=== PATIENT | male | born 1945 | race African-American/Black ===

== ENCOUNTER 2019-04-04 05:24 | Inpatient (IN) | payer MEDICARE, OTHER ==
[2019-04-01 12:07] LABS: BASOPHILS # (AUTO) 0.1 (0.0-0.1); BASOPHILS % 0.7 % (0.0-1.0); EOSINOPHILS # (AUTO) 0.2 (0.0-0.4); EOSINOPHILS % 2.5 % (0.0-6.0); HEMATOCRIT 46.9 % (38.2-49.6); HEMOGLOBIN 15.4 g/dL (14.0-18.0); LYMPHOCYTES # (AUTO) 1.4 (1.0-3.2); LYMPHOCYTES % 20.2 % (18.0-39.1); MEAN CORPUSCULAR HEMOGLOBIN 28.8 pg (28-32); MEAN CORPUSCULAR HGB CONC 32.8 g/dL (31-35); MEAN CORPUSCULAR VOLUME 87.8 fL (81-99); MONOCYTES # (AUTO) 0.6 (0.2-0.8); MONOCYTES % 9.1 % (4.4-11.3); NEUTROPHILS # (AUTO) 4.5 (2.1-6.9); NEUTROPHILS % 66.9 % (38.7-80.0); PLATELET COUNT 251 x10e3/uL (140-360); RED BLOOD COUNT 5.34 x10e6/uL (4.3-5.7); RED CELL DISTRIBUTION WIDTH 14.7 % (11.7-14.4)
[2019-04-01 12:32] LABS: ANION GAP 13.2 mmol/L (8-16); BLOOD UREA NITROGEN 15 mg/dL (7-26); BUN/CREATININE RATIO 13 (6-25); CALCIUM 10.7 mg/dL (8.4-10.2); CARBON DIOXIDE 24 mmol/L (22-29); CHLORIDE 103 mmol/L (98-107); CREATININE, SERUM 1.18 mg/dL (0.72-1.25); EST GLOMERULAR FILTRATION RATE > 60 ML/MIN (60-); GLUCOSE 94 mg/dL (74-118); POTASSIUM 4.2 mmol/L (3.5-5.1); SODIUM 136 mmol/L (136-145)
[~2019-04-04] VITALS: Ht 175.3 cm; Wt 114.8 kg
[~2019-04-04 05:24] MED LIST: AMLODIPINE BESYL5 MG PO; GABAPENTIN300 MG PO; IBUPROFEN400 MG PO; LEVITRA20 MG PO; TRIAMTERENE-HCTZ1 EA PO; VITAMIN B-121000 MCG PO; VITAMIN D1000 UNI1 PO
--- OUTSIDE RECORDS SUMMARY | 2019-04-04 05:31 | XMS REPORT | Summary of Care ---
Author Author [facility] Organization [facility] Address Unknown Phone Unavailable Encounter DANNY Anguiano(ALLEN) [id number] Date(s): 04/18/17 - 04/18/17 [facility] [address], [place], [place] [address]- [phone] Discharge Diagnosis: Lumbar strain Discharge Disposition: Home or Self Care Attending Physician: Iglesia Irby MD Vital Signs Most recent to 1 oldest [Reference Range]: Height 175.26 cm (04/18/17 8:11 AM) Temperature Oral 97.8 DegF [96.4-99.1 DegF] (04/18/17 8:11 AM) Blood Pressure 133/85 mmHg [90-140/60-90 mmHg] (04/18/17 8:11 AM) Respiratory Rate 16 BRMIN [14-20 BRMIN] (04/18/17 8:11 AM) Peripheral Pulse 77 bpm Rate [60-100 bpm] (04/18/17 8:11 AM) Weight 104.545 kg (04/18/17 8:11 AM) Body Mass Index 34.04 m2 (04/18/17 8:11 AM) Problem List Condition Effective Dates Status Health Status Informant HTN Active (hypertension)(Confi rmed) Allergies, Adverse Reactions, Alerts Substance Reaction Severity Status NKDA Active Medications No data available for this section Results URINE AND STOOL Most recent to 1 oldest [Reference Range]: UA Turbidity [Clear] Clear (04/18/17 8:43 AM) UA Color [Yellow] Yellow *NA* (04/18/17 8:43 AM) UA pH [5.0-8.0] 5.5 (04/18/17 8:43 AM) UA Spec Grav 1.025 [<=1.030] (04/18/17 8:43 AM) UA Glucose Negative [Negative] (04/18/17 8:43 AM) UA Blood [Negative] Negative (04/18/17 8:43 AM) UA Ketones Negative [Negative] *NA* (04/18/17 8:43 AM) UA Protein Negative [Negative] (04/18/17 8:43 AM) UA Urobilinogen 0.2 EU/dL [0.1-1.0 EU/dL] (04/18/17 8:43 AM) UA Bili [Negative] Large *ABN* (04/18/17 8:43 AM) UA Leuk Est Negative [Negative] (04/18/17 8:43 AM) UA Nitrite Negative [Negative] (04/18/17 8:43 AM) UA WBC [None Seen] None Seen (04/18/17 8:43 AM) UA RBC [0-2 /HPF] 0-2 /HPF (04/18/17 8:43 AM) UA Bacteria [None None Seen Seen] (04/18/17 8:43 AM) UA Sq Epi [Few] None Seen (04/18/17 8:43 AM) Immunizations No data available for this section Procedures Procedure Date Related Diagnosis Body Site Carpal tunnel release Cholecystectomy ORIF - Open reduction and internal fixation of fracture1 1x2 Social History Social History Type Response Smoking Status Never smoker; Exposure to Tobacco Smoke None; Cigarette Smoking Last 365 Days No; Reg Smoking Cessation Counseling No Assessment and Plan No data available for this section
--- OUTSIDE RECORDS SUMMARY | 2019-04-04 05:31 | XMS REPORT | Continuity of Care Document ---
Author Author [facility] Organization [facility] Address Unknown Phone Unavailable Care Team Providers Care Hvac Designer Name Role Phone [facility] Unavailable Unavailable Problems Problem Status Onset Date Classification Date Reported Comments Source Discharge Diagnosis: Lumbar strain 04/18/2017 04/21/2017 [facility] LOWER BACK PAIN Active 04/18/2017 [facility] Discharge Diagnosis: Cervical spinal stenosis 11/09/2015 11/12/2015 [facility] NECK PAIN Active 11/09/2015 [facility] HTN (Confirmed) Active Problem 04/21/2017 [facility] Medications Medication Details Route Status Patient Instructions Ordering Provider Order Date Source Acetaminophen 325 MG / Hydrocodone Bitartrate 5 MG Oral Tablet [[place] 5/325] 2 tab, Route: PO, Drug Form: TAB, kg, ONCE, STAT, Start date: 11/09/15 0:28:00 CDT, Stop date: 11/09/15 0:28:00 CDTNotes: (Same as: [place] 325/5) Do not exceed 4gm/day of acetaminophen. Inactive 11/09/2015 [facility] Allergies, Adverse Reactions, Alerts No Known Medication Allergies Immunizations No Data Provided for This Section Results Order Name Results Value Reference Range Date Interpretation Comments Source URINE AND STOOL UA WBC None Seen (04/18/17 8:43 AM) None Seen 04/18/2017 [facility] URINE AND STOOL UA Sq Epi None Seen (04/18/17 8:43 AM) Few 04/18/2017 [facility] URINE AND STOOL UA Bacteria None Seen (04/18/17 8:43 AM) None Seen 04/18/2017 [facility] URINE AND STOOL UA Glucose Negative (04/18/17 8:43 AM) Negative 04/18/2017 [facility] URINE AND STOOL UA Urobilinogen 0.2 0.1 - 1.0 04/18/2017 [facility] URINE AND STOOL UA Blood Negative (04/18/17 8:43 AM) Negative 04/18/2017 [facility] URINE AND STOOL UA Bili Large *ABN* (04/18/17 8:43 AM) Negative 04/18/2017 [facility] URINE AND STOOL UA Leuk Est Negative (04/18/17 8:43 AM) Negative 04/18/2017 [facility] URINE AND STOOL UA Nitrite Negative (04/18/17 8:43 AM) Negative 04/18/2017 [facility] URINE AND STOOL UA RBC 0-2 /HPF 0 - 2 04/18/2017 [facility] URINE AND STOOL UA Ketones Negative *NA* (04/18/17 8:43 AM) Negative 04/18/2017 [facility] URINE AND STOOL UA Turbidity Clear (04/18/17 8:43 AM) Clear 04/18/2017 [facility] URINE AND STOOL UA Color Yellow *NA* (04/18/17 8:43 AM) Yellow 04/18/2017 [facility] URINE AND STOOL UA Protein Negative (04/18/17 8:43 AM) Negative 04/18/2017 [facility] URINE AND STOOL UA pH 5.5 5.0 - 8.0 04/18/2017 [facility] URINE AND STOOL UA Spec Grav 1.025 <=1.030 04/18/2017 [facility] Pathology Reports No Data Provided for This Section Diagnostic Reports Report Value Date Source Spine lumbar 2 or 3 views DX EXAM: AP and lateral radiographs of the lumbar spine, 4 images obtained INDICATION: Right-sided lumbar back pain COMPARISON: None FINDINGS: Only 4 nonrib-bearing lumbar-type vertebral bodies are identified. The vertebral bodies are normal in height and alignment. Anterolisthesis is present at the 3, L4, and S1 vertebral bodies. There is mild disc space height loss at L4-S1. Moderate: Left hip osteoarthritis is present. Right total hip arthroplasty is present. Sacroiliac joints are fairly well-maintained. IMPRESSION: Of note, only 4 nonrib-bearing lumbar-type vertebral bodies are identified. No acute osseous findings. Mild to moderate degenerative changes are present at L4-S1. SL: [id number] 04/18/2017 [facility] Spine cervical wo contrast CT Clinical Indication: Pain, Cervical region; right posterior neck pain 4 days denies trauma Comparison: None Technique: Multi-detector CT imaging of the cervical spine is performed. Coronal and sagittal reconstructions were obtained. CT Radiation Dose DLP 546 mGy-cm FINDINGS: ALIGNMENT AND GENERAL ASSESSMENT: There is straightening of the cervical spine curvature from positioning or muscle spasm. There are no fractures or subluxations. The craniocervical junction in the atlanto-dental alignment appears maintained. The posterior elements and spinous processes as well as the facet joint spinolaminar and spinous process alignment are maintained. 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 DISK SPACES AND SOFT TISSUES: The prevertebral soft tissues are normal. 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 C2-C3 no significant disc bulge. Right facet arthropathy. No foraminal stenosis. Mild canal stenosis. C3-C4 there is some disc space narrowing. No significant disc bulge. Facets unremarkable. No foraminal stenosis. Mild canal stenosis. C4-C5 there is disc space narrowing with mild diffuse disc bulge. Facets unremarkable. Mild central canal stenosis. No significant foraminal stenosis. C5-C6 loss of disc spacing with some diffuse disc bulging with mild canal stenosis. No foraminal stenosis. Facets unremarkable. C6-C7 possible disc spacing mild diffuse disc bulging with mild to moderate canal stenosis. No foraminal stenosis. MRI is the gold standard to assess for disk disease. VISUALIZED LUNG APICES: Unremarkable. CT myelogram or MRI of the cervical spine may be performed, if there is further concern. IMPRESSION: 1. No fractures or subluxations of the cervical spine. 2. Degenerative changes noted superimposed upon likely component of congenital canal stenosis SL: [id number] 11/09/2015 [facility] Consultation Notes No Data Provided for This Section Discharge Summaries No Data Provided for This Section History and Physicals No Data Provided for This Section Vital Signs Vital Sign Value Date Comments Source Weight 104.545 04/18/2017 [facility] Height 175.26 cm 04/18/2017 [facility] BMI Calculated 34.04 04/18/2017 [facility] Temperature Oral (F) 97.8 F 04/18/2017 [facility] Respitory Rate 16 04/18/2017 [facility] Heart Rate 77 04/18/2017 [facility] Systolic (mm Hg) 133 04/18/2017 [facility] Diastolic (mm Hg) 85 04/18/2017 [facility] Heart Rate 80 11/09/2015 [facility] Respitory Rate 18 11/09/2015 [facility] Systolic (mm Hg) 120 11/09/2015 [facility] Diastolic (mm Hg) 85 11/09/2015 [facility] Height 175.26 cm 11/09/2015 [facility] Weight 104.545 11/09/2015 [facility] BMI Calculated 34.04 11/09/2015 [facility] Systolic (mm Hg) 158 11/09/2015 [facility] Diastolic (mm Hg) 80 11/09/2015 [facility] Heart Rate 70 11/09/2015 [facility] Temperature Oral (F) 98.1 F 11/09/2015 [facility] Respitory Rate 18 11/09/2015 [facility] Encounters Location Location Details Encounter Type Encounter Number Reason For Visit Attending Provider ADM Date DC Date Status Source [place] [facility] [id number] Jordan Carrollden 11/09/2015 11/09/2015 [facility] [id number] Iglesia Irby 04/18/2017 04/18/2017 [facility] Procedures Procedure Code Date Perfomer Comments Source Carpal tunnel release 08805836 [facility] Cholecystectomy [id number] [facility] ORIF - Open reduction and internal fixation of fracture<sup>1</sup> 54272988 x2 [facility] Assessment and Plan No Data Provided for This Section Plan of Care No Data Provided for This Section Social History Social History Date Source Social History TypeResponse Smoking Status Never smoker; Exposure to Tobacco Smoke None; Cigarette Smoking Last 365 Days No; Reg Smoking Cessation Counseling No 04/18/2017 [facility] Family History No Data Provided for This Section Advance Directives No Data Provided for This Section Functional Status No Data Provided for This Section
--- OUTSIDE RECORDS SUMMARY | 2019-04-04 05:31 | XMS REPORT | Summary of Care ---
Author Author [facility] Organization [facility] Address Unknown Phone Unavailable Encounter DANNY Anguiano(ALLEN) [id number] Date(s): 11/09/15 - 11/09/15 [facility] [address], [place], [place] [address]- [phone] Discharge Diagnosis: Cervical spinal stenosis Discharge Disposition: Home Attending Physician: Jordan Thrasher MD Vital Signs Most recent to 1 2 oldest [Reference Range]: Height 175.26 cm (11/09/15 12:26 AM) Temperature Oral 98.1 DegF [96.4-99.1 DegF] (11/09/15 12:26 AM) Blood Pressure 120/85 mmHg 158/80 mmHg [90-140/60-90 mmHg] (11/09/15 3:13 AM) *HI* (11/09/15 12:26 AM) Respiratory Rate 18 BRMIN 18 BRMIN [14-20 BRMIN] (11/09/15 3:13 AM) (11/09/15 12:26 AM) Peripheral Pulse 80 bpm 70 bpm Rate [60-100 bpm] (11/09/15 3:13 AM) (11/09/15 12:26 AM) Weight 104.545 kg (11/09/15 12:26 AM) Body Mass Index 34.04 m2 (11/09/15 12:26 AM) Problem List Condition Effective Dates Status Health Status Informant HTN Active (hypertension)(Confi rmed) Allergies, Adverse Reactions, Alerts Substance Reaction Severity Status NKDA Active Medications [place] 5/325 oral tablet 2 tab, Route: PO, Drug Form: TAB, kg, ONCE, STAT, Start date: 11/09/15 0:28:00 C DT, Stop date: 11/09/15 0:28:00 CDT Notes: (Same as: [place] 325/5) Do not exceed 4gm/day of acetaminophen. Start Date: 11/09/15 Stop Date: 11/09/15 Status: Completed Results No data available for this section Immunizations No data available for this section [...]
--- OUTSIDE RECORDS SUMMARY | 2019-04-04 05:31 | XMS REPORT ---
Author Author [facility] Address Unknown Phone Unavailable Care Team Providers Care Dust Box Worker Name Role Phone Unavailable Unavailable Payers Payer Name Policy Type Policy Number Effective Date Expiration Date Problems This patient has no known problems. Allergies, Adverse Reactions, Alerts Allergy Name Allergy Type Status Severity Reaction(s) Onset Date Inactive Date Treating Clinician Comments No Known Allergies DA Active U 2016-01-11 00:00:00 Medications This patient has no known medications. Results Test Description Test Time Test Comments Text Results Atomic Results Result Comments - XR CHEST 2 V 2019-02-21 11:53:00 FAX: Doug Ochoa Do, MD [phone] [place]: St: REG Name: JLUIS YEBOAH [facility] : 1945 Age/S: 73/M [address] #: [id number] Loc: [place] [address] Phys: Doug Day MD Acct: [id number] Dis Date: Status: REG CLI PHONE #: [phone] Exam Date: 02/21/2019 1138 FAX #: [phone] Reason: PRE-OP PHYSICAL EXAMS: CPT CODE: [id number] XR CHEST 2 V 77923 EXAM: - XR CHEST 2 V HISTORY: PRE-OP PHYSICAL Location code:C3 COMPARISON: None available time of interpretation. FINDINGS: AP and lateral view of the chest is provided. The cardiac silhouette is within normal limits. The lungs are clear of focal consolidation. No pleural effusion, pneumothorax or acute osseous abnormality is identified. Cholecystectomy clips are noted. IMPRESSION: 1. No acute cardiopulmonary process. at 1153 Reported and signed by: Marlene Boo MD CC: Doug Weber Do, MD Technologist: Leni Irvin; STUDENT 2ND YEAR Trnksrd Date/Time/By: 02/21/2019 (5802) : By: [email or web address] PAGE 1 Signed Report FAX: Doug Ochoa Do, MD [phone] [place]: St: REG Name: JLUIS YEBOAH [facility] : 1945 Age/S: 73/M [address] Unit #: [id number] Loc: [place] [address] Phys: Doug Day MD Acct: [id number] Dis Date: Status: REG CLI PHONE #: [phone] Exam Date: 02/21/2019 1131 FAX #: [phone] Reason: PRE-OP PHYSICAL EXAMS: CPT CODE: [id number] XR CHEST 2 V 34472 <Continued> Orig Print D/T: S: 02/21/2019 (4838) PAGE 2 Signed Report - XR L-SPINE 4+VIEWS 2019-01-25 12:05:00 FAX: Doug Ochoa Do, MD [phone] [place]: St: REG Name: JLUIS YEBOAH : 1945 Age/S: 73/M [address] Unit #: [id number] Loc: [place] [address] Phys: Doug Day MD Acct: [id number] Dis Date: Status: REG CLI PHONE #: [phone] Exam Date: 01/25/2019 1039 FAX #: [phone] Reason: BACK PAIN/ LEFT HIP PAIN EXAMS: CPT CODE: [id number] XR L-SPINE 4+VIEWS 48484 EXAM: - XR L-SPINE 4+VIEWS HISTORY: BACK PAIN/ LEFT HIP PAIN COMPARISON: None available time of interpretation. FINDINGS: AP, lateral, bilateral oblique, and spot lateral views of the lumbar spine are provided. Lumbar spine alignment is maintained. Vertebral body heights are preserved. There is no significant disc space narrowing. No pars defects. Mild marginal osteophytes at multiple levels. IMPRESSION: No acute fracture with normal alignment. Mild lumbar spondylosis. at 1200 Reported and signed by: Ariana ALVARADO, Magno CC: Doug Weber Do, MD Technologist: Rell Shultz; STUDENT 1ST YEAR; STUDENT 2ND YEAR Trnscrd Date/Time/By: 01/25/2019 (9427) : By: [email or web address] PAGE 1 Signed Report FAX: Doug Ochoa Do, MD [phone] [place]: St: REG Name: JLUIS YEBOAH : 1945 Age/S: 73/M [address] Unit #: [id number] Loc: [place] [address] Phys: Doug Day MD Acct: [id number] Dis Date: Status: REG CLI PHONE #: [phone] Exam Date: 01/25/2019 1039 FAX #: [phone] Reason: BACK PAIN/ LEFT HIP PAIN EXAMS: CPT CODE: [id number] XR L-SPINE 4+VIEWS 86183 <Continued> Orig Print D/T: S: 01/25/2019 (4463) PAGE 2 Signed Report - XR HIP W/PEL UNI 2+V LT 2019-01-25 12:04:00 FAX: Y Doug Day MD [phone] [place]: St: REG Name: JLUIS YEBOAH [facility] : 1945 Age/S: 73/M [address] Unit #: [id number] Loc: [place] [address] Phys: Doug Day MD Acct: [id number] Dis Date: Status: REG [facility] PHONE #: [phone] Exam Date: 01/25/2019 1039 FAX #: [phone] Reason: BACK PAIN/ LEFT HIP PAIN EXAMS: CPT CODE: [id number] XR HIP W/PEL UNI 2+[place] [address] EXAM: - XR HIP W/PEL UNI 2+V LT HISTORY: BACK PAIN/ LEFT HIP PAIN COMPARISON: None available time of interpretation. FINDINGS: AP and frog-leg lateral views of the left hip. No fracture or dislocation. Thff-qy-czbm articulation identified at the left hip joint. Left hip joint osteophytes are also present. Right hip arthroplasty is noted. IMPRESSION: Severe degenerative arthropathy of the left hip joint. at 1204 Reported and signed by: Ariana ALVARADO, Magno CC: Doug Webre Do, MD Technologist: Rell Shultz; STUDENT 1ST YEAR; STUDENT 2ND YEAR Trnscrd Date/Time/By: 01/25/2019 (6543) : By: [email or web address] PAGE 1 Signed Report FAX: Doug Ochoa Do, MD [phone] [place]: St: REG ---- Name: JLUIS YEBOAH [facility] : 1945 Age/S: 73/M [address] Unit #: [id number] Loc: [place] [address] Phys: Doug Day MD Acct: [id number] Dis Date: Status: REG CLI PHONE #: [phone] Exam Date: 01/25/2019 1039 FAX #: [phone] Reason: BACK PAIN/ LEFT HIP PAIN EXAMS: CPT CODE: [id number] XR HIP W/PEL UNI 2+[place] [address] <Continued> Orig Print D/T: S: 01/25/2019 (0601) PAGE 2 Signed Report
[2019-04-04] MEDS ORDERED: TRANEXAMIC ACID 1,000 MG/10 ML ML ONE (06:18)
[2019-04-04] MEDS ORDERED: BACITRACIN 50,000 UNIT VIAL ONE ×2 (06:18→06:39)
[2019-04-04] MEDS ORDERED: VANCOMYCIN HCL 1,000 MG ONE (06:18)
[2019-04-04] MEDS ORDERED: SODIUM CHLORIDE 0.9% 500ML 500 ML ONE ×2 (06:19→06:39)
[2019-04-04] MEDS ORDERED: ROPIVACAINE 246.25 MG, EPINEPHRINE HCL 1:1000 1ML 0.5 MG, CLONIDINE HCL 0.08 MG, KETORO... INJ ONE ×5 (06:30)
[2019-04-04] MEDS ORDERED: HYDROGEN PEROXIDE 120 ML BTL ONE (06:40)
[2019-04-04] MEDS ORDERED: DEXAMETHASONE SOD PHOS 10 MG/1 ML VIAL ONE (06:52)
[2019-04-04] MEDS ORDERED: CELECOXIB 200 MG CAP ONE (06:52)
[2019-04-04] MEDS ORDERED: GABAPENTIN 300 MG CAP ONE (06:53)
[2019-04-04] MEDS ORDERED: CEFAZOLIN SOD 1 GM/NS 50ML 100 ML IV ONE (06:53)
[2019-04-04] MEDS ORDERED: BUPIVACAINE 7.5MG/ML /DEXTROSE 82.5MG/ML 2 ML AMP INJ ONE (07:19)
[2019-04-04] MEDS ORDERED: SODIUM CHLORIDE 0.9% 1000ML 1,000 ML IV SCH (09:06)
[2019-04-04] MEDS ORDERED: ONDANSETRON HCL INJ 2MG/ML 2ML 2 MG/ML VIAL IV PRN (09:15)
[2019-04-04] MEDS ORDERED: ZOLPIDEM TARTRATE 5 MG TAB PO PRN (09:15)
[2019-04-04] MEDS ORDERED: ACETAMINOPHEN 650 MG SUPP PR PRN (09:15)
[2019-04-04] MEDS ORDERED: HYDROCODONE/APAP 7.5MG-325MG 1 EA TAB PO PRN (09:15)
[2019-04-04] MEDS ORDERED: DIPHENHYDRAMINE HCL INJ 50 MG/ML VIAL IM/IV PRN (09:15)
[2019-04-04] MEDS ORDERED: DOCUSATE SODIUM 100 MG CAP PO PRN (09:15)
[2019-04-04] MEDS ORDERED: HYDROCODONE/APAP 5MG-325MG TAB PO PRN (09:15)
[2019-04-04] MEDS ORDERED: PROMETHAZINE HCL (IM) 25 MG/ML VIAL INJ PRN (09:15)
[2019-04-04] MEDS ORDERED: KETOROLAC TROMETHAMINE 30 MG/ML VIAL IV PRN (09:15)
--- OUTSIDE RECORDS SUMMARY | 2019-04-04 09:34 | XMS REPORT | Continuity of Care Document ---
Author Author [facility] Organization [facility] Address Unknown Phone Unavailable Care Team Providers Care Cloth Mercerizer Back Tender Name Role Phone [facility] Unavailable Unavailable Problems Problem Status Onset Date Classification Date Reported Comments Source Discharge Diagnosis: Lumbar strain 04/18/2017 04/21/2017 [facility] LOWER BACK PAIN Active 04/18/2017 [facility] Discharge Diagnosis: Cervical spinal stenosis 11/09/2015 11/12/2015 [facility] NECK PAIN Active 11/09/2015 [facility] HTN (Confirmed) Active Problem 04/21/2017 [facility] Medications Medication Details Route Status Patient Instructions Ordering Provider Order Date Source Acetaminophen 325 MG / Hydrocodone Bitartrate 5 MG Oral Tablet [[place] 5/325] 2 tab, Route: PO, Drug Form: TAB, kg, ONCE, STAT, Start date: 11/09/15 0:28:00 CDT, Stop date: 11/09/15 0:28:00 CDTNotes: (Same as: [place] 325/5) Do not exceed 4gm/day of acetaminophen. Inactive 11/09/2015 [facility] Allergies, Adverse Reactions, Alerts No Known Medication Allergies Immunizations No Data Provided for This Section Results Order Name Results Value Reference Range Date Interpretation Comments Source URINE AND STOOL UA WBC None Seen (04/18/17 8:43 AM) None Seen 04/18/2017 [facility] URINE AND STOOL UA Sq Epi None Seen (04/18/17 8:43 AM) Few 04/18/2017 [facility] URINE AND STOOL UA Bacteria None Seen (04/18/17 8:43 AM) None Seen 04/18/2017 [facility] URINE AND STOOL UA Glucose Negative (04/18/17 8:43 AM) Negative 04/18/2017 [facility] URINE AND STOOL UA Urobilinogen 0.2 0.1 - 1.0 04/18/2017 [facility] URINE AND STOOL UA Blood Negative (04/18/17 8:43 AM) Negative 04/18/2017 [facility] URINE AND STOOL UA Bili Large *ABN* (04/18/17 8:43 AM) Negative 04/18/2017 [facility] URINE AND STOOL UA Leuk Est Negative (04/18/17 8:43 AM) Negative 04/18/2017 [facility] URINE AND STOOL UA Nitrite Negative (04/18/17 8:43 AM) Negative 04/18/2017 [facility] URINE AND STOOL UA RBC 0-2 /HPF 0 - 2 04/18/2017 [facility] URINE AND STOOL UA Ketones Negative *NA* (04/18/17 8:43 AM) Negative 04/18/2017 [facility] URINE AND STOOL UA Turbidity Clear (04/18/17 8:43 AM) Clear 04/18/2017 [facility] URINE AND STOOL UA Color Yellow *NA* (04/18/17 8:43 AM) Yellow 04/18/2017 [facility] URINE AND STOOL UA Protein Negative (04/18/17 8:43 AM) Negative 04/18/2017 [facility] URINE AND STOOL UA pH 5.5 5.0 - 8.0 04/18/2017 [facility] URINE AND STOOL UA Spec Grav 1.025 <=1.030 04/18/2017 [facility] Pathology Reports No Data Provided for This [...] degenerative changes are present at L4-S1. SL: [id number] 04/18/2017 [facility] Spine cervical wo contrast CT Clinical Indication: [...] likely component of congenital canal stenosis SL: [id number] 11/09/2015 [facility] Consultation Notes No Data Provided for This Section Discharge Summaries No Data Provided for This Section History and Physicals No Data Provided for This Section Vital Signs Vital Sign Value Date Comments Source Weight 104.545 04/18/2017 [facility] Height 175.26 cm 04/18/2017 [facility] BMI Calculated 34.04 04/18/2017 [facility] Temperature Oral (F) 97.8 F 04/18/2017 [facility] Respitory Rate 16 04/18/2017 [facility] Heart Rate 77 04/18/2017 [facility] Systolic (mm Hg) 133 04/18/2017 [facility] Diastolic (mm Hg) 85 04/18/2017 [facility] Heart Rate 80 11/09/2015 [facility] Respitory Rate 18 11/09/2015 [facility] Systolic (mm Hg) 120 11/09/2015 [facility] Diastolic (mm Hg) 85 11/09/2015 [facility] Height 175.26 cm 11/09/2015 [facility] Weight 104.545 11/09/2015 [facility] BMI Calculated 34.04 11/09/2015 [facility] Systolic (mm Hg) 158 11/09/2015 [facility] Diastolic (mm Hg) 80 11/09/2015 [facility] Heart Rate 70 11/09/2015 [facility] Temperature Oral (F) 98.1 F 11/09/2015 [facility] Respitory Rate 18 11/09/2015 [facility] Encounters Location Location Details Encounter Type Encounter Number Reason For Visit Attending Provider ADM Date DC Date Status Source [place] [facility] [id number] Jordan Carrollden 11/09/2015 11/09/2015 [facility] [id number] Iglesia Irby 04/18/2017 04/18/2017 [facility] Procedures Procedure Code Date Perfomer Comments Source Carpal tunnel release [id number] [facility] Cholecystectomy 84618576 [facility] ORIF - Open reduction and internal fixation of fracture<sup>1</sup> 83785335 x2 [facility] Assessment and Plan No Data Provided for This Section Plan of Care No Data Provided for This Section Social History Social History Date Source Social History TypeResponse Smoking Status Never smoker; Exposure to Tobacco Smoke None; Cigarette Smoking Last 365 Days No; Reg Smoking Cessation Counseling No 04/18/2017 [facility] Family History No Data Provided for This Section Advance Directives No Data Provided for This Section Functional Status No Data Provided for This Section
--- NOTE | 2019-04-04 12:09 | NUR ---
Received patient from PACU via stretcher. AAOX4 to time, person, place. Respirations even and unlabored. Dressing to left hip clean, dry, and intact. Abductor pillow between legs. Oriented to room. Instructed to use call light for assistance. Voiced understanding.
--- NOTE | 2019-04-04 12:11 | Diagnostic Imaging Report ---
EXAMINATION: PELVIS AP 1-2 VIEWS INDICATION: Postoperative COMPARISON: None FINDINGS: Portable AP radiograph of the pelvis demonstrates immediate postoperative findings of left total hip replacement. Alignment is anatomic. No unexpected fracture. Hardware appears intact. Postoperative subcutaneous air and overlying surgical skin sam in place. Status post more remote right total hip replacement, also in anatomic alignment. No evidence of hardware complication. IMPRESSION: Anatomic alignment status post left total hip replacement and more remote right total hip replacement. Signed by: Christiana Kendall MD on 04/04/2019 12:08 PM
[2019-04-04 12:30] VITALS: BP 156/79
[2019-04-04 12:40] VITALS: BP 156/79
[2019-04-04] MEDS: ACETAMINOPHEN 1000 MG/100 ML IV SCH ×3 (12:40→23:09)
[2019-04-04] MEDS ORDERED: FENTANYL CITRATE/PF 100MCG/2 ML INJ ONE (15:01)
[2019-04-04] MEDS ORDERED: MIDAZOLAM HCL 2 MG/2 ML VIAL ONE (15:01)
--- NOTE | 2019-04-04 16:19 | Operative Report ---
DATE OF PROCEDURE: 04/04/2019 SURGEON: Curtis Jones MD VENEER TAPER: Gilles Levin PA-C PREOPERATIVE DIAGNOSIS: Osteoarthritis, left hip. POSTOPERATIVE DIAGNOSIS: Osteoarthritis, left hip. PROCEDURE: Left total hip arthroplasty. INDICATIONS: The patient is a 73-year-old gentleman with end-stage arthritis of his left hip. He has failed conservative management and would like to proceed with a left total hip replacement. The risks and benefits have been discussed. He has been through this before on the right side. All of his questions have been answered. He states he understands and wishes to proceed. PROCEDURE IN DETAIL: The patient was brought to the operating room and given a spinal anesthetic. He received prophylactic antibiotics and tranexamic acid in the holding area. He was also placed under a light general anesthetic. He was positioned in the right lateral decubitus position. His left hip was prepped and draped in a sterile manner. Time-out was performed. A limited incision posterior approach was made to the left hip. Care was taken to avoid injury to the sciatic nerve. Hemostasis was obtained with electrocautery. The posterior capsule was carefully exposed. The piriformis and the capsule were released. Further hemostasis was obtained with electrocautery. The hip was dislocated and an oscillating saw was used to resect the femoral head. Complete loss of articular cartilage was noted. Acetabular retractors were carefully placed. The true floor of the acetabulum was established with a 46 mm reamer. The socket was then sequentially reamed up to 57 mm. This accomplished a bleeding hemispherical surface of cancellous bone. A large subchondral cyst in the superior dome was debrided and impacted with autologous bone graft taken from the femoral head. [place] Trident 58 mm outer diameter socket was then impacted into place. Good fixation was felt to be obtained. Fixation was augmented with a single 25 mm screw. Excellent bone purchase was encountered. The hip was thoroughly irrigated with a shower tip pulsatile lavage and a spray mixture of diluted vancomycin and polymyxin spray. A portion of a 100 mL premixed pericapsular ISAIAH injection was placed around the surrounding acetabular tissue. A highly cross-linked polyethylene liner with a 36 mm inner diameter and no posterior elevation was impacted into place. Care was taken to make sure that there was no evidence of soft tissue interposition. The socket was packed with a moistly soaked lap sponge. Attention was directed towards the proximal femur. A box cutting osteotome and taper pin reamers were used to establish entry to the femoral canal. The [place] broaches were impacted. A 37.5 mm offset stem was trialed. A #0 stem had excellent canal fill. There was no way I was going to get a 44 mm offset stem into the hip. This was slightly a concern because he had a 44 mm offset stem on the other side. Trial reductions were performed. I would between a standard +3 mm head. I felt that the +3 mm head was tight and over lengthen the leg. I went with a standard head, which had good stability. The trial implants were removed. A small bone plug was placed down the femoral canal. The canal was thoroughly irrigated with a pulsatile lavage. It was packed with a moistly soaked peroxide sponges under suction while 2 mixes of Simplex cement were prepared on the back table. The cement was inserted in a retrograde fashion and pressurized until about 6.5 minutes of cement time. The stem was seated to the predetermined level in about 15 degrees of anteversion. A standard 36 mm head was seated onto a clean and dry stem. A final reduction was performed. Once again, the hip was put through a full arc of motion and noted to have good stability. The posterior capsule was repaired with #2 Ethibond. Vancomycin powder 500 mg was placed into the joint after thoroughly irrigating the hip one more time with a shower tip pulsatile lavage. The proximal tensor fascia and gluteal fascia were closed with interrupted #2 Ethibond. The skin was closed with subcuticular Vicryl and sam. A sterile bandage was applied. The patient was returned to the supine position, he was extubated and transported to the recovery room in stable condition. Estimated blood loss was 50 mL. At the end of the procedure, all needle and sponge counts were correct. Curtis Jones MD DR/TOR /[id number]
[2019-04-04 16:50] VITALS: BP 117/70
[2019-04-04] MEDS: ASPIRIN 325 MG TAB PO SCH (17:26)
[2019-04-04] MEDS: CELECOXIB 200 MG CAP PO SCH (17:26)
[2019-04-04] MEDS ORDERED: PROPOFOL IV EMULSION 10 MG/ML 20 ML VIAL ONE (17:29)
[2019-04-04] MEDS ORDERED: LIDOCAINE HCL 2% LOCAL INJ 5 ML SDV VIAL INJ ONE (17:29)
[2019-04-04] MEDS ORDERED: ONDANSETRON HCL INJ 2MG/ML 2ML 2 MG/ML VIAL ONE (17:29)
[2019-04-04] MEDS ORDERED: ACETAMINOPHEN 1000 MG/100 ML IV ONE (17:29)
[2019-04-04] MEDS: CEFAZOLIN SOD 1 GM/NS 50ML 50 ML IV SCH ×2 (18:00→23:48)
--- NOTE | 2019-04-04 19:00 | NUR ---
received report from day nurse. patient is resting comfortably in bed. bed is in lowest position and call light is within reach. will continue to monitor patient.
--- NOTE | 2019-04-04 19:17 | NUR ---
Report given to oncoming nurse of patient's status. Resting in bed, side rails upx2, call light within reach. AAOX4 to time, person, place, situation. Respirations even and unlabored. Dressing to left hip clean, dry, and intact.
[2019-04-04 20:00] VITALS: BP 112/66
[2019-04-04 20:47] VITALS: BP 112/66
[2019-04-05] VITALS: BP 119/76
[2019-04-05 04:00] VITALS: BP 112/73
[2019-04-05] MEDS: ACETAMINOPHEN 1000 MG/100 ML IV SCH (05:19)
[2019-04-05 05:33] LABS: HEMOGLOBIN 12.3 g/dL (14.0-18.0)
--- NOTE | 2019-04-05 06:45 | NUR ---
report given to day nurse. patient is resting comfortably in bed. bed is in lowest position and call light is within reach.
--- NOTE | 2019-04-05 06:57 | Consultation ---
DATE OF CONSULTATION: REASON FOR CONSULTATION: Postop medical management, left hip repair. HISTORY OF PRESENT ILLNESS: The patient is a 73-year-old status post left hip arthroplasty. He is doing well postoperatively with minimal pain of the left hip, was consulted for postop medical management. REVIEW OF SYSTEMS: The patient denies any fever, chills, nausea, vomiting, headache, shortness of breath, chest pains, or dizziness. PAST MEDICAL HISTORY: Significant for hypertension. MEDICATIONS: See MAR. ALLERGIES: NONE. SOCIAL HISTORY: Former smoker. He is . Nondrinker. FAMILY HISTORY: Diabetes, high blood pressure. PHYSICAL EXAMINATION: VITAL SIGNS: Temperature 97.2, pulse 70, blood pressure 112/73, sats 93% on room air. GENERAL: He is in no apparent distress, lying in bed. NECK: Supple. CARDIOVASCULAR: Regular rate and rhythm. LUNGS: Clear to auscultation bilaterally. ABDOMEN: Good bowel sounds. Soft, nontender. EXTREMITIES: No clubbing or cyanosis. NEUROLOGIC: Nonfocal. ASSESSMENT AND PLAN: 1. Left hip pain. We will continue with postoperative care since he is doing well. 2. Anemia, check a CBC. 3. Hypertension. Continue with his home medications and monitor his blood pressure. Please see also chart for full details. MD EMMANUEL Guadalupe/TOR /[id number]
[2019-04-05 07:20] VITALS: BP 121/74
[2019-04-05 07:48] VITALS: BP 121/74
[2019-04-05] MEDS ORDERED: TRIAMTERENE/HCTZ 37.5-25 MG TAB PO SCH (09:00)
[2019-04-05] MEDS ORDERED: AMLODIPINE BESYLATE 5 MG TAB PO SCH (09:00)
[2019-04-05] MEDS ORDERED: CYANOCOBALAMIN 1,000 MCG TAB PO SCH (09:00)
[2019-04-05] MEDS ORDERED: CHOLECALCIFEROL 1,000 UNIT TAB PO SCH (09:00)
[2019-04-05] MEDS: CEFAZOLIN SOD 1 GM/NS 50ML 50 ML IV SCH (09:01)
[2019-04-05] MEDS: CELECOXIB 200 MG CAP PO SCH (09:01)
[2019-04-05] MEDS: ASPIRIN 325 MG TAB PO SCH (09:01)
[2019-04-05] MEDS ORDERED: ACETAMINOPHEN 1000 MG/100 ML IV PRN (09:15)
[2019-04-05] MEDS ORDERED: ASPIR 8181 MG PO (10:51)
--- NOTE | 2019-04-05 11:30 | NUR ---
Per Ron MARTINEZ rx for pain will be faxed to patient's pharmacy. Patient aware.
[2019-04-05 11:38] VITALS: BP 134/74
--- NOTE | 2019-04-05 12:00 | NUR ---
Placed aquacel dressing to left hip. Site clean, dry, and intact. [place] well approximated
--- NOTE | 2019-04-05 12:19 | NUR ---
ORDERS REC'D FROM DR WRIGHT'S OFFICE FOR HOME HEALTH AND DME PRE-ARRANGED BY THEIR OFFICE CHOICE LETTER SIGNED BY PT AND ON CHART COPY TO PT IN CARE TRANSITIONS FOLDER IMM EXPLAINED AND SIGNED BY PT AND PLACED IN CHART COPY OF IMM TO PT IN CARE TRANSITIONS FOLDER GAVE PT MY CARD FOR QUESTIONS CONCERNS
--- NOTE | 2019-04-05 12:22 | NUR ---
HOME HEALTH DISCHARGE NOTE PATIENT ADDRESS WHERE SERVICE WILL BE RECEIVED[facility] [id number] [facility] [address] PATIENT CONTACT NUMBER [phone] NAME OF HOME HEALTH COMPANY: [facility] TELEPHONE/FAX NUMBER OF COMPANY: [phone] ADDRESS OF Xcerion: [address] [place] [id number] SERVICES TO RECEIVE: SKILLED NURSE EVAL PT/OT EVAL ANTICIPATED DATE SERVICES WILL BEGING: 04/06/19 DME ARRANGED WITH [employer]; SHARA [phone] ALL DME DELIVERED TO PT'S HOME PLEASE CALL THE COMPANY ABOVE IF YOU HAVE NOT RECEIVED A CALL TO SCHEDULE A HOME VISIT WITHIN 24 HRS OF DISCHARGE
--- NOTE | 2019-04-05 12:25 | NUR ---
Left hand IV discontinued. No signs of infiltration noted. 2x2 gauze and tape placed. Taken via wheelchair by PCT to personal car. Accompanied by AAOX4 to time, person, place, situation. Respirations even and unlabored. Aquacel dressing to left hip clean, dry, and intact. Discharge instructions and all personal belongings taken with patient. No rx available at this time. Rx to be faxed by Ron MARTINEZ.
== END 2019-04-05 12:25 | disposition home health service (06) | DRG 470 ==
LOC: OR 05:24 → PACU V 09:08 → MED/SURG 12:10
PROVIDERS: ADMIT Specialist; ATTEND Specialist
PROC: 0SRB049 Replacement of Left Hip Joint with Ceramic on Polyethylene Synthetic Substitute, Cemented, Open Approach (ICD-10-PCS; principal; 2019-04-04 08:30)
DX: M16.12 Unilateral primary osteoarthritis, left hip (principal); I10 Essential (primary) hypertension; D64.9 Anemia, unspecified; Z90.49 Acquired absence of other specified parts of digestive tract; Z87.891 Personal history of nicotine dependence; Z83.3 Family history of diabetes mellitus; Z82.49 Family history of ischemic heart disease and other diseases of the circulatory system; Z96.641 Presence of right artificial hip joint
CPT/HCPCS: 36415; 72170; 80048; 85014; 85018; 85025; 86850; 86900; 86920; C1713; J0171; J0690; J1100; J1885; J2001; J2250; J2405; J2795; J3010; J3370; J7030; J7040